=== PATIENT | male | born 1940 | race Caucasian/White ===

== ENCOUNTER 2017-09-21 15:12 | Outpatient (CLI) | payer MEDICARE ==
[2013-08-17 08:12] VITALS: BP 120/68
== END 2017-09-21 15:14 ==
LOC: NEPHRO 15:12
PROVIDERS: ATTEND Internal Medicine Nephrology
DX: N17.9 Acute kidney failure, unspecified (principal); N18.9 Chronic kidney disease, unspecified; I10 Essential (primary) hypertension
CPT/HCPCS: G0463

== ENCOUNTER 2018-02-22 13:45 | Outpatient (CLI) | payer MEDICARE ==
[2013-08-17 08:12] VITALS: BP 120/68
== END 2018-02-22 13:46 ==
LOC: NEPHRO 13:45
PROVIDERS: ATTEND Internal Medicine Nephrology
DX: N18.9 Chronic kidney disease, unspecified (principal); I10 Essential (primary) hypertension
CPT/HCPCS: G0463

== ENCOUNTER 2019-06-20 12:13 | Outpatient (CLI) | payer MEDICARE ==
[2013-08-17 08:12] VITALS: BP 120/68
--- NOTE | 2019-06-20 13:13 | Diagnostic Imaging Report ---
PATIENT MR#: [id number] PATIENT PATIENT NAME: LATOYA MILLAN DATE OF : 1940 REFERRING PHYSICIAN: Margi Herrera EXAM DATE: 06/20/2019 ACCESSION NUMBER: [id number] EXAM DESCRIPTION: CHEST 2VIEW HISTORY: COUGH X 5 WEEKS. COMPARISON: None provided. CHEST RADIOGRAPH, FRONTAL AND LATERAL: Upper mediastinum: Not widened. Heart: No cardiomegaly. Lungs: Chronic elevation of the right hemidiaphragm. No lobar infiltrate, pulmonary edema, pneumothor ax or significant effusion. Skeleton: Median sternotomy. IMPRESSION: No acute thoracic process. Read by: Dr. Isai Long Transcribed by: Isai Long Transcribed Date: 06/20/2019 1:13:13 PM Electronically signed by: Dr. Isai Long Date signed: 06/20/2019 1:13:13 PM
== END 2019-06-20 12:30 ==
LOC: RAD 12:13
PROVIDERS: ATTEND Nurse Practitioner Family
DX: R05 Cough (principal)
CPT/HCPCS: 71046

== ENCOUNTER 2019-06-27 11:26 | Outpatient (CLI) | payer MEDICARE ==
[2013-08-17 08:12] VITALS: BP 120/68
[2019-06-27 11:43] LABS: BASOPHILS % 0.4 % (0.0-1.5); NEUTROPHILS # 5.5 # k/uL (1.4-7.7)
[2019-06-27 12:06] LABS: eGFR (Non-African) 25
== END 2019-06-27 11:31 ==
LOC: LAB 11:26
PROVIDERS: ATTEND Nurse Practitioner Family
DX: R74.8 Abnormal levels of other serum enzymes (principal)
CPT/HCPCS: 36415; 80053; 84075; 84080; 85025; 85651

== ENCOUNTER 2019-07-03 12:41 | Outpatient (CLI) | payer MEDICARE ==
[2013-08-17 08:12] VITALS: BP 120/68
--- NOTE | 2019-07-03 16:09 | Diagnostic Imaging Report ---
PATIENT MR#: [id number] PATIENT PATIENT NAME: LATOYA MILLAN DATE OF : 1940 REFERRING PHYSICIAN: Margi Herrera EXAM DATE: 07/03/2019 ACCESSION NUMBER: [id number] EXAM DESCRIPTION: CT CHEST/ABD/PEL CLINICAL HISTORY: COUGH, ELEVATED ALKALINE PHOS, ABDOMINAL PAIN AND BOWEL CHANGES; HX OF AORTIC REPLA CEMENT, KIDNEY REMOVED, AND GALLBLADDER REMOVED TECHNIQUE: CT chest, abdomen and pelvis without IV contrast. COMPARISON: Chest x-ray June 20, 2019. CT CHEST WITHOUT CONTRAST: Thyroid: 7 mm right thyroid nodule. Lungs: There is a small lobulated mass of the left lung base measuring 2 x 2.6 cm, which was not visi ble on the prior chest radiograph. There are scant bilateral pleural effusions. No pneumothorax. Heart: Normal size. No significant effusion. Aorta: Status post repair of the ascending aorta. There is a 3.9 cm rounded mass of the anterior medi astinum which is closely associated with the anterior wall of the ascending aortic repair. Without prior exams for com parison, it is uncertain whether this represents a chronic or acute aortic aneurysm Mediastinum and antonia: There is an ill-defined mass interposed between the left hilar vessels and the descending thoracic aorta (axial images 26-31) which is incompletely evaluated without IV contrast. Differential diagnosi s includes lymphadenopathy versus esophageal diverticulum. There is an additional 1.5 cm distal right paraesopha geal lymph node. Bony thorax: Median sternotomy. CT ABDOMEN WITHOUT CONTRAST: Liver: There are innumerable hypodense masses throughout the liver, too numerous to count and insuffi ciently measured without IV contrast. A single well-defined lesion in the right hepatic lobe measures up to [address] 22 cm hepatomegaly. Gallbladder: Cholecystectomy. Pancreas: No pancreatic duct dilation. Spleen: Calcified granulomas. Adrenals: Normal size. Right kidney: Nephrectomy. Left kidney: No stones or hydronephrosis. Multiple hypodense lesions measuring up to 4.7 cm. Althoug h several of these may represent cysts, solid renal masses are not excluded without IV contrast. 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 Bowel loops: Nondistended. Peritoneum: No free air. CT PELVIS WITHOUT CONTRAST: Colon: Multiple colonic diverticula without evidence of diverticulitis. Bladder: Nondistended. Pelvic organs: 5.7 cm prostatomegaly. Peritoneum: Mild free pelvic fluid. Skeleton: No acute findings. IMPRESSION: 1. Multiple hepatic masses concerning for metastatic disease. Recommend further evaluation with contr ast enhanced abdomen CT. PET/CT and/or biopsy may also be considered. 2. Solitary left lower lobe pulmonary nodule which may represent primary or metastatic disease. 3. Posterior mediastinal/left hilar mass may represent lymphadenopathy or esophageal diverticulum. Th is may be more adequately evaluated with contrast enhanced exam. 4. Status post vascular repair of the ascending aorta. There is a 3.9 cm rounded mass extending from the anterior aortic wall which may represent residual chronic aneurysm. However, acute aneurysm is not excluded without p rior exams for comparison. Recommend further evaluation with contrast enhanced chest CT and direct comparison to lelo or exams, if available. 5. Multiple hypodense lesions within the left kidney are statistically most likely to represent cysts . However, solid low density masses are not excluded in a patient status post right nephrectomy and history of renal c ancer. 6. Colonic diverticulosis. Findings were discussed with DAVID Pena, at the time of the interpretation. Read by: Dr. Isai Long Transcribed by: Isai Long Transcribed Date: 07/03/2019 4:07:52 PM Electronically signed by: Dr. Isai Long Date signed: 07/03/2019 4:08:38 PM
--- NOTE | 2019-07-04 09:08 | Diagnostic Imaging Report ---
[facility] [address] [facility] [id number] PATIENT NAME: LATOYA MILLAN : 1940 DOS: 07/03/2019 REFERRING PHYSICIAN: Margi Herrera EXAMINATION: CT CHEST/ABD/PEL CLINICAL HISTORY: COUGH, ELEVATED ALKALINE PHOS, ABDOMINAL PAIN AND BOWEL CHANGES; HX OF AORTIC REPLACEMENT, KIDNEY REMOVED, AND GALLBLADDER REMOVED TECHNIQUE: CT chest, abdomen and pelvis without IV contrast. COMPARISON: Chest x-ray June 20, 2019. CT CHEST WITHOUT CONTRAST: Thyroid: 7 mm right thyroid nodule. Lungs: There is a small lobulated mass of the left lung base measuring 2 x 2.6 cm, which was not visible on the prior chest radiograph. There are scant bilateral pleural effusions. No pneumothorax. Heart: Normal size. No significant effusion. Aorta: Status post repair of the ascending aorta. There is a 3.9 cm rounded mass of the anterior mediastinum which is closely associated with the anterior wall of the ascending aortic repair. Without prior exams for comparison, it is uncertain whether this represents a chronic or acute aortic aneurysm Mediastinum and antonia: There is an ill-defined mass interposed between the left hilar vessels and the descending thoracic aorta (axial images 26-31) which is incompletely evaluated without IV contrast. Differential diagnosis includes lymphadenopathy versus esophageal diverticulum. There is an additional 1.5 cm distal right paraesophageal lymph node. Bony thorax: Median sternotomy. CT ABDOMEN WITHOUT CONTRAST: Liver: There are innumerable hypodense masses throughout the liver, too numerous to count and insufficiently measured without IV contrast. A single well-defined lesion in the right hepatic lobe measures up to 4 cm diameter. 22 cm hepatomegaly. Gallbladder: Cholecystectomy. Pancreas: No pancreatic duct dilation. Spleen: Calcified granulomas. Adrenals: Normal size. Right kidney: Nephrectomy. Left kidney: No stones or hydronephrosis. Multiple hypodense lesions measuring up to 4.7 cm. Although several of these may represent cysts, solid renal masses are not excluded without IV contrast. 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 Bowel loops: Nondistended. Peritoneum: No free air. CT PELVIS WITHOUT CONTRAST: Colon: Multiple colonic diverticula without evidence of diverticulitis. Bladder: Nondistended. Pelvic organs: 5.7 cm prostatomegaly. Peritoneum: Mild free pelvic fluid. Skeleton: No acute findings. IMPRESSION: 1. Multiple hepatic masses concerning for metastatic disease. Recommend further evaluation with contrast enhanced abdomen CT. PET/CT and/or biopsy may also be considered. 2. Solitary left lower lobe pulmonary nodule which may represent primary or metastatic disease. 3. Posterior mediastinal/left hilar mass may represent lymphadenopathy or esophageal diverticulum. This may be more adequately evaluated with contrast enhanced exam. 4. Status post vascular repair of the ascending aorta. There is a 3.9 cm rounded mass extending from the anterior aortic wall which may represent residual chronic aneurysm. However, acute aneurysm is not excluded without prior exams for comparison. Recommend further evaluation with contrast enhanced chest 5. Multiple hypodense lesions within the left kidney are statistically most likely to represent cysts. However, solid low density masses are not excluded in a patient status post right nephrectomy and history of renal cancer. 6. Colonic diverticulosis. Findings were discussed with DAVID Pena, at the time of the interpretation. CT and direct comparison to prior exams, if available. Dr. Isai Long Electronically signed on: 07/03/2019 4:08:38 PM [place]
== END 2019-07-03 12:51 ==
LOC: RAD 12:41
PROVIDERS: ATTEND Nurse Practitioner Family
DX: R05 Cough (principal); R10.84 Generalized abdominal pain; R19.5 Other fecal abnormalities; R74.8 Abnormal levels of other serum enzymes
CPT/HCPCS: 71250; 74176